=== PATIENT | male | born 2000 | race Hispanic/Latino ===

== ENCOUNTER 2021-01-19 10:23 | Emergency (ER) | payer BC ==
[~2021-01-19] VITALS: Ht 167.6 cm; Wt 53.5 kg
[2021-01-19 10:31] VITALS: BP 116/64
[2021-01-19] MEDS ORDERED: ONDA4TAB4 PO (11:55)
== END 2021-01-19 12:04 | disposition home or self-care (01) ==
LOC: EDH 10:23
DX: B34.9 Viral infection, unspecified (principal); R11.0 Nausea